=== PATIENT | female | born 1990 | race Caucasian/White ===

== ENCOUNTER 2025-01-09 05:32 | Inpatient (IN) ==
--- NOTE | 2024-12-15 09:06 | PAT Medication Instructions ---
Medication Instructions Date of Service December 15, 2024 Home Medications Medication Instructions Recorded lancets 30 gauge ([employer] Ximena #100 ea 11/10/24 Plus Lancet) blood sugar diagnostic ([facility]100 ea 11/11/24 Verio test strips) blood-glucose meter ([facility] #1 ea 11/11/24 Verio Flex Meter) lancets 30 gauge (Wummel[employer]Touch Ximena #25 ea 11/11/24 Plus Lancet) PNV no.[id number] [ Gummies] 1 tab PO DAILY ferrous sulfate 325 mg (65 mg iron) tablet (iron) 325 mg PO .EVERY OTHER DAY loratadine 10 mg tablet (Claritin) 10 mg PO DAILY PRN Allergy Symptoms DO NOT take the morning of surgery PNV no.[id number] [ Gummies] 1 tab PO DAILY ferrous sulfate 325 mg (65 mg iron) tablet (iron) 325 mg PO .EVERY OTHER DAY loratadine 10 mg tablet (Claritin) 10 mg PO DAILY PRN Allergy Symptoms Other Notes If you have any questions please call us at [phone] or [phone] or [phone] or [phone]
--- NOTE | 2024-12-20 10:00 | Anesthesiology Consultation ---
Date of Service December 20, 2024 Assessment & Plan (1) Encounter for pre-operative examination: - needle phobia: we had a detailed discussion regarding neuraxial anesthesia for and patient verbalized understanding we cannot sedate with this given current . Dr. Pandey advised that lidocaine cream can be applied to low back upon presentation. We also discussed likely spinal vs epidural which she had with previous given conversion from labor. She is interested in application of lidocaine cream to back upon presentation and order will be placed. We discussed that approach regarding IV/any day of surgery labs will be to OB's discretion on plan. Patient requests that she does not see set-up for neuraxial anesthesia and requests minimal discussion on it from provider. - patient states that she does not want her mother Diane to know that she is having tubal ligation done as well. She states she is comfortable with her mother visiting her in hospital-patient and her were made aware that it will be to their management regarding coordination of discussion with OB post- op/during hospitalization if mother is present in room. They verbalized understanding and denied additional questions or concerns, indicated satisfaction with discussion. Surgeon's office made aware of above. - Exam & Advise: patient seen at [facility] 12/20/24. Concern regarding upcoming delivery given patient severe needle phobia and her concerns regarding anesthesia. They request her be present for neuraxial anesthesia which is fine-L&D and surgeon's office made aware. Time in direct patient care 30 minutes. Chart Review Chart Review: Acceptable Risk for Surgery and Patient seen in Pre Admission Testing Teaching & Discussion Pre-Anesthesia Teaching/Discussion Notes: Instructed NPO after midnight before surgery, except medications with 15 cc of water. Medication instructions provided according to the [facility] guidelines. History Surgery Operation Date: 01/09/25 07:30 Proposed Procedures p Section (Delivery of Baby Through Abdominal Incision), - Karol Perez MD, FACOG s With Bilateral Tubal Ligation - Karol Perez MD, FACOG Height/Weight Height: 5 ft 4 in Weight: 97 kg Allergies Allergy/AdvReac Type Severity Reaction Status Date / Time Penicillins Allergy Intermediate Rash Verified 12/20/24 09:08 Medications Home Medications Medication Instructions Recorded Confirmed Last Taken PNV no.[id number] 1 tab PO DAILY 05/30/24 12/20/24 Unknown [ Gummies] lancets 30 gauge (One[employer] Delica #100 ea 11/10/24 12/20/24 Unknown Plus Lancet) blood sugar diagnostic ([employer]Touch #100 ea 11/11/24 12/20/24 Unknown Verio test strips) blood-glucose meter ([employer] #1 ea 11/11/24 12/20/24 Unknown Verio Flex Meter) lancets 30 gauge (OneTouch Delica #25 ea 11/11/24 12/20/24 Unknown Plus Lancet) ferrous sulfate 325 mg (65 mg 325 mg PO .EVERY OTHER DAY 12/15/24 12/20/24 Unk nown iron) tablet (iron) loratadine 10 mg tablet (Claritin) 10 mg PO DAILY PRN Allergy Symptoms 12/15/24 12/20/24 Unknown Past Medical History Medical History (Updated 12/20/24 @ 10:44 by Dia Zamora PA-C) GERD (gastroesophageal reflux disease) during Gestational diabetes diet controlled History of chicken pox History of COVID-19 (2019) no hosp; resolved History of postoperative nausea and vomiting occasional Hx of migraines Needle phobia Seasonal allergies Patient denies h/o stroke, seizures, heart attack, heart failure, HTN, blood clots/DVTs or blood transfusions. Exercise / Class Metabolic Activity II 4-5 Yardwork/Stairs/Walk up hill (shortness of breath with one flight of stairs at this point in -denies change/worsening-denies chest discomfort) Past Family History Family History Mother Diabetes Father Diabetes Grandmother (Maternal) Diabetes Aunt Breast cancer Denies family history of Ovarian cancer Colorectal cancer Past Surgical History Surgical History (Updated 12/20/24 @ 10:43 by Dia Zamora PA-C) History of tonsillectomy and adenoidectomy S/P breast biopsy, left benign-radiotracer in place S/P bunionectomy S/P section S/P myringotomy with insertion of tube with subsequent patch placement Past Anesthesia History No Hx of Anesthesia Complications and No Family Hx of Anesthesia Complications History of PONV No Hx of Motion Sickness and History of PONV Social History Smoking Status: Never smoker Do You Dip or Chew Tobacco: No Hx Alcohol Use: No Hx Substance Use: No substance use type: does not use Review of Systems Snoring, denies witnessed apneas. Patient denies chest pain, shortness of breath, dyspnea on exertion, fever, chills, cough, wheezing, or palpitations. Physical Exam Vital Signs Vitals BP 130/79 P 102 TEMP 36.7 SP02 96% on RA RESP 19 Physical Patient resting comfortably in chair in no acute distress, alert and oriented, responding appropriately throughout visit Full cervical extension range of motion without pain TMD 3 finger breadths Mallampati Score 3 Dentition: intact, denies chipped or loose teeth, caps/crowns, implants or bridges Lungs: normal respiratory effort. Good air movement, clear throughout to auscul tation, no adventitious breath sounds Cardiac: regular rate and rhythm, no murmurs noted Carotid arteries: negative bruit bilat Lumbar: normal in appearance, nontender to palpation of spinous processes and paraspinal muscles; no evident misalignment of spine
--- NOTE | 2025-01-06 18:01 | History & Physical Report ---
Date of Service January 06, 2025 Assessment & Plan (1) 39 weeks gestation of : (2) H/O section: (3) Encounter for sterilization: (4) Gestational diabetes mellitus (GDM) affecting , antepartum: Plan admit, iv, labs. plan lidocaine cream to back due to needle phobia, per anesthesia note. aware of risks of sterlization including regret. plans rpt c/s. discussed circumstances of last delivery and enc pt to cont to discuss concerns/wishes. consent reviewed and signed. History of Present Illness Chief Complaint: planned repeat c/s desires sterilization Primary Care Provider: NO PCP 34yo who will be 39wks on day of admission for planned repeat c/s and desires sterilization. No rom, vb. +FM. No ctx. PNC c/b 1. GDM diet controlled. 2. Anesth consult--see report due to anxiety regarding needles. PNL rh pos, ri, gbs neg OBH: c/s x 1 GYNH: nl paps no stds Allergies Allergy/AdvReac Type Severity Reaction Status Date / Time Penicillins Allergy Intermediate Rash Verified 01/06/25 08:51 Home Medications Medication Instructions Recorded Confirmed Type PNV no.[id number] 1 tab PO DAILY 05/30/24 01/06/25 History [ Gummies] lancets 30 gauge (OneTouch Delica #100 ea 11/10/24 01/06/25 Rx Plus Lancet) blood sugar diagnostic (OneTouch #100 ea 11/11/24 01/06/25 Rx Verio test strips) blood-glucose meter (OneTouch #1 ea 11/11/24 01/06/25 Rx Verio Flex Meter) lancets 30 gauge (OneTouch Delica #25 ea 11/11/24 01/06/25 Rx Plus Lancet) ferrous sulfate 325 mg (65 mg 325 mg PO .EVERY OTHER DAY 12/15/24 01/06/25 History iron) tablet (iron) loratadine 10 mg tablet (Claritin) 10 mg PO DAILY PRN Allergy Symptoms 12/15/24 01/06/25 History Patient History Medical History (Updated 01/06/25 @ 18:00 by Karol Perez MD, FACOG) GERD (gastroesophageal reflux disease) during Needle phobia History of COVID-19 (2019) no hosp; resolved History of postoperative nausea and vomiting occasional Gestational diabetes diet controlled Hx of migraines History of chicken pox Seasonal allergies Surgical History (Updated 01/06/25 @ 18:00 by Karol Perez MD, FACOG) History of tonsillectomy and adenoidectomy S/P breast biopsy, left benign-radiotracer in place S/P myringotomy with insertion of tube with subsequent patch placement S/P bunionectomy S/P section Family History Mother Diabetes Father Diabetes Grandmother (Maternal) Diabetes Aunt Breast cancer Denies family history of Ovarian cancer Colorectal cancer Social History Smoking Status: Never smoker Second Hand Exposure: Yes (hx); Do You Dip or Chew Tobacco: No; Hx Alcohol Use: No Hx Substance Use: No Preferred Language: Citizen Of [place] Communication Ability: Effective 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 Beliefs That Will Affect Care: None marital status: marital status details: Cipriano Forte (31) [phone] Current Living Situation: Spouse and Family current occupational status: employed current occupation: [employer]-works from home Feels Safe at Home: Yes Assistive Devices: Other Review of Systems as per Subjective / HPI Physical Exam Constitutional: WD/WN, vitals as above Respiratory: normal respiratory effort, lungs clear to auscultation Cardiovascular: Rate/Rhythm: regular rate and regular rhythm Gastrointestinal (Abdomen): soft gravid nt Musculoskeletal: no edema nontender calves Neurologic: grossly normal Psychiatric: A+Ox3, euthymic affect Coding Level of Care Code None Diagnoses 39 weeks gestation of Z3A.39 H/O section Z98.891 Encounter for sterilization Z30.2 Gestational diabetes mellitus (GDM) affecting , antepartum O24.419
[~2025-01-09 05:32] MED LIST: ALLERGY Noted to ORDERED Medication SCH
[2025-01-09] MEDS ORDERED: ceFAZolin 2,000 MG in SYRINGE 0 ML IV SCH (06:00)
[2025-01-09 06:10] LABS: Hematocrit (blood only) 32.9 % (37.0-47.0); Hemoglobin 10.8 g/dl (12.0-16.0); Mean Corpuscular Hemoglobin 26.9 pg (25.0-34.0); Mean Corpuscular Hgb Conc 32.8 g/dL (32.0-36.0); Mean Corpuscular Volume 81.8 fL (80.0-100.0); Mean Platelet Volume 9.9 fL (9.4-12.4); Platelet Count 270 K/uL (130-400); RDW Coefficient of Variation 16.7 % (11.5-14.5); RDW Standard Deviation 49.1 fL (36.4-46.3); Red Blood Count 4.02 M/uL (4.20-5.40); White Blood Count 8.87 K/ul (4.8-10.8)
[2025-01-09] MEDS: ACETAMINOPHEN 500 MG TAB PO SCH (06:21)
[2025-01-09] MEDS ORDERED: SODIUM CHLORIDE 0.9% 100 ML IV PRN (06:34)
[2025-01-09] MEDS ORDERED: SODIUM CHLORIDE 0.9% 50 ML IV PRN (06:34)
[2025-01-09] MEDS ORDERED: DEXAMETHASONE SOD INJ 4 MG/ML VIAL ONE (06:49)
[2025-01-09] MEDS ORDERED: fentaNYL citrate PF 100 MCG/2 ML VIAL ONE (06:49)
[2025-01-09] MEDS ORDERED: ONDANSETRON INJ 2 MG/ML 2 ML VIAL ONE (06:49)
[2025-01-09] MEDS ORDERED: PHENYLEPHRINE 100MCG/ML 5ML SYR ONE (06:49)
[2025-01-09] MEDS ORDERED: PHENYLEPHRINE HCL 25 MG/250 ML NSS IV ONE (06:49)
[2025-01-09] MEDS ORDERED: MoRPHine SULFATE PF 1 MG/ML 10 ML AMP/VIAL ONE (06:49)
[2025-01-09] MEDS ORDERED: OXYTOCIN 10 UNITS/ML VIAL ONE (06:52)
[2025-01-09] MEDS: LIDOCAINE 4% CREAM 15 GM TUBE EXT ONE (07:00)
[2025-01-09] MEDS: LACTATED RINGER'S 1,000 ML IV SCH (07:00)
[2025-01-09] MEDS: CITRIC ACID/SODIUM CITRATE 15 ML UDC PO SCH (07:08)
--- NOTE | 2025-01-09 07:25 | History & Physical Bridge Note ---
Date of Service January 09, 2025 History & Physical Bridge Note I have examined the patient, reviewed the History & Physical and in the interval since the performance of the History & Physical I have noted the following changes of clinical significance: no changes noted
[2025-01-09] MEDS: ceFAZolin 2000MG 2,000 MG/15 ML SYR IV ONE (07:30)
[2025-01-09] MEDS ORDERED: diphenhydrAMINE 50 MG/ML VIAL IV PRN (07:52)
[2025-01-09] MEDS ORDERED: oxyCODONE HCL IR 5 MG TAB (IMMEDIATE RELEASE) PO PRN (07:52)
[2025-01-09] MEDS ORDERED: ePHEDrine sulfate 50 MG/ML AMP IV PRN (07:52)
[2025-01-09] MEDS ORDERED: NALOXONE HCL 1 MG in SODIUM CHLORIDE 0.9% 1,000 ML IV PRN (07:52)
[2025-01-09] MEDS ORDERED: NALBUPHINE HCL INJ 10 MG/ML AMP IV PRN (07:52)
[2025-01-09] MEDS ORDERED: NALOXONE HCL 0.08 MG in SYRINGE 1.8 ML IV PRN (07:52)
[2025-01-09] MEDS ORDERED: PROMETHAZINE 6.25 MG/50.25 ML BAG IV PRN (07:52)
[2025-01-09] MEDS ORDERED: NALOXONE HCL 0.4 MG/1 ML VIAL/CARP IV PRN (07:52)
[2025-01-09] MEDS ORDERED: DC INTRASPINAL MORPHINE SCH (08:00)
[2025-01-09] MEDS ORDERED: NO NARCOTICS OR SEDATIVES SCH (08:00)
[2025-01-09] MEDS ORDERED: MIDAZOLAM HCL 1 MG/ML 2ML VIAL ONE (08:10)
--- NOTE | 2025-01-09 08:37 | Operative Report ---
Post Operative Report Pre & Post Diagnosis Operation Date: 01/09/25 07:30 Pre-Op Diagnosis: 1.39week iup 2.Hx section 3. Desire repeat section 4.Desire sterilization 5. Breech presentation Post-Op Diagnosis: Same as preoperative I identified the patient and participated in the time-out.: Yes Procedure Operation Date: 01/09/25 07:30 Actual Procedures p Repeat Low Transverse Section in LD with Bilateral Salpingectomies(Bilateral) - Karol Perez MD, FACOG Surgeon Karol Perez MD, FACOG Shipping And Receiving Assistant Amberly Quantitative Blood Loss (QBL) 333 Findings Consistent with Post-Op Diagnosis (viable female apgars 8,9 normal uterus tubes and ovaries bilaterally) Fluids 900 Specimens cord blood, bilateral fallopian tubes. Drains palm Anesthesia Type Spinal Complications none Disposition Accompanied Patient To Recovery: No Disposition: L&D Indications 34yo at 39 wks ega who desires repeat c/s for history of prior c/s and desires sterilization, presentation breech. Description of Procedure The patient was taken to the operating room and identified. After adequate anesthesia was obtained, she was placed in the supine position with a leftward tilt on the operating table and prepped and draped in the usual sterile fashion. A palm catheter had already been placed. The knife was used to create a Pfannensteil skin incision that was carried down to the underlying layer of fascia. The fascia was nicked in the midline and this opening was extended laterally using Adrian scissors. Joceline clamps were placed on the superior and inferior aspect of the fascial incision tenting it upward and the underlying rectus muscles were dissected off the overlying fascia both sharply and bluntly using Adrian scissors. The rectus muscles were bluntly in the midline. The peritoneal cavity was bluntly entered into. This opening was stretched. The bladder blade was placed. The vesicouterine peritoneum was elevated and opened up into and the bladder flap was created digitally and bladder blade was replaced. The knife was used to create a hysterotomy and this opening was stretched. The operators hand was placed through the hysterotomy and the bladder blade was removed. The foot was delivered followed by second foot and buttocks. The fetus was delivered to level of scapulae and arms were swept across anterior midline. The head was then flexed and delivered. The cord was clamped and cut after about 30sec and the 's mouth and nares were bulb suction. The was handed off to the awaiting pediatricians. Cord blood was obtained. The placenta was manually expressed. The uterus was exteriorized and cleared of all clots and debris. Dilute IV Pitocin was begun. The uterine tone was improving. The hysterotomy was closed in a running interlocking fashion using 0 Vicryl. Attention was turned to each fallopian tube which were resected using cautery/cutting ligasure device. The hysterotomy was hemostatic. The pelvis was suctioned. The uterus was returned to the abdomen. The gutters were cleared of all clots and debris. The hysterotomy was reinspected and noted to be hemostatic. The fascia was then closed in running fashion using 0 Vicryl. The subcutaneous fat was copiously irrigated and reapproximated using 2-0 chromic. The skin was closed in a subcuticular fashion using 4-0 monocryl. At this point the procedure was terminated. The patient was transferred to the recovery room in stable condition. All sponge, lap and needle counts are correct x2. I attest to the content of the Intraoperative Record and any orders documented therein. Any exceptions are noted below. OB Procedure Charges [id number] Add on Tubal for C/S
--- NOTE | 2025-01-09 08:54 | Anesthesiology Progress Note ---
Date of Service January 09, 2025 Anesthesia Post Procedure Vital Signs Vital Signs: Temp Pulse Resp BP Pulse Ox 01/09/25 08:48 76 100 01/09/25 08:46 74 93 01/09/25 08:43 77 99 01/09/25 08:39 74 105/58 L 94 01/09/25 08:38 74 94 01/09/25 07:18 37 C 20 01/09/25 07:16 79 119/70 01/09/25 06:09 88 115/61 01/09/25 06:05 36.9 C 20 Transfer of Care Handoff Completed per policy Notes Mental Status: alert / awake / arousable and participated in evaluation Patient Amnestic to Procedure: No Nausea / Vomiting: adequately controlled Pain: adequately controlled Airway Patency, RR, SpO2: stable & adequate BP & HR: stable & adequate Hydration State: stable & adequate Neuraxial Anesthesia: was administered and sensory block is resolving Anesthetic Complications: no major complications apparent and Pt Satisfied with anesthetic care
[2025-01-09] MEDS ORDERED: HYDROCORTISONE ACETATE 25 MG SUPP PR PRN (08:57)
[2025-01-09] MEDS ORDERED: SENNA 8.6 MG TAB PO PRN (08:57)
[2025-01-09] MEDS ORDERED: CALCIUM CARBONATE 500 MG CHEWABLE TAB PO PRN (08:57)
[2025-01-09] MEDS ORDERED: BENZOCAINE 20% SPRY 85 APPLN/85 GM CAN EXT PRN (08:57)
[2025-01-09] MEDS ORDERED: MAGNESIUM HYDROXIDE SUSP 30 ML UDC PO PRN (08:57)
[2025-01-09] MEDS ORDERED: OXYTOCIN 20 UNITS/LR 1,002 ML IV SCH (09:00)
[2025-01-09] MEDS: KETOROLAC 30 MG/ML VIAL IV SCH (09:19)
[2025-01-09] MEDS: DIPHTHER/TETAN/PERTUS Vaccine (Tdap, Adol/Adult) 0.5mL IM ONE (09:22)
[2025-01-09] MEDS: MoRPHine SULFATE PF 1 MG/ML 10 ML AMP/VIAL INT SPINAL ONE (09:22)
[2025-01-09] MEDS: SODIUM CHLORIDE 0.9% 1,000 ML IV SCH (09:23)
[2025-01-09] MEDS: LORATADINE 10 MG TAB PO PRN (09:33)
[2025-01-09] MEDS: SIMETHICONE 80 MG CHEW PO SCH (13:09)
[2025-01-09] MEDS: ONDANSETRON INJ 2 MG/ML 2 ML VIAL IV PRN (14:33)
[2025-01-09] MEDS: HYDROmorphone INJ 0.5 MG/0.5 ML SYR IV PRN (14:36)
[2025-01-09] MEDS: ACETAMINOPHEN 325 MG TAB PO SCH (15:24)
[2025-01-09] MEDS: DOCUSATE SODIUM 100 MG CAP PO SCH (21:14)
[2025-01-10] MEDS: LACTATED RINGER'S 1,000 ML IV SCH (00:31)
[2025-01-10] MEDS ORDERED: diphenhydrAMINE 50 MG/ML VIAL IV PRN (01:52)
[2025-01-10] MEDS ORDERED: PROMETHAZINE 12.5 MG/50.5 ML BAG IV PRN (01:52)
[2025-01-10] MEDS ORDERED: ONDANSETRON INJ 2 MG/ML 2 ML VIAL IV PRN (01:52)
[2025-01-10] MEDS ORDERED: diphenhydrAMINE Capsule 25 MG CAP PO PRN (01:52)
[2025-01-10] MEDS: HYDROmorphone INJ 0.5 MG/0.5 ML SYR IV PRN (02:22)
[2025-01-10 06:30] LABS: Basophils # (auto) 0.04 K/uL (0.00-0.20); Basophils % (auto) 0.4 %; Eosinophils # (auto) 0.22 K/uL (0.00-0.50); Eosinophils % (auto) 2.1 %; Hematocrit (blood only) 34.3 % (37.0-47.0); Hemoglobin 10.9 g/dl (12.0-16.0); Lymphocytes # (auto) 3.16 K/uL (1.20-3.40); Lymphocytes % (auto) 30.1 %; Mean Corpuscular Hemoglobin 26.4 pg (25.0-34.0); Mean Corpuscular Hgb Conc 31.8 g/dL (32.0-36.0); Mean Corpuscular Volume 83.1 fL (80.0-100.0); Mean Platelet Volume 10.2 fL (9.4-12.4); Monocytes # (auto) 1.36 K/uL (0.11-0.59); Neutrophils # (auto) 5.62 K/uL (1.40-6.50); Neutrophils % (auto) 53.4 %; Platelet Count 274 K/uL (130-400); RDW Coefficient of Variation 16.9 % (11.5-14.5); RDW Standard Deviation 50.3 fL (36.4-46.3); Red Blood Count 4.13 M/uL (4.20-5.40)
--- NOTE | 2025-01-10 07:24 | Obstetrical Progress Note ---
Date of Service January 10, 2025 Assessment & Plan (1) care and examination: Plan doing well stable. cont with routine care. hgb noted. breast, rhpos, ri. Day #:: 1 Subjective Ambulation: ambulating normally Voiding: no voiding problems Passing Gas:: Yes Diet Tolerance:: regular diet Lochia:: Small Feeding Type:: breast feeding used some oxycodone this am and moving well. pain well controlled. hgb stable. Constitutional: + as per Subjective / HPI Physical Exam Constitutional WD/WN, vitals as above Respiratory normal respiratory effort, lungs clear to auscultation Cardiovascular Rate/Rhythm: regular rate and regular rhythm Gastrointestinal (Abdomen) Inspection/Auscultation: abdomen normal to inspection and + abdominal surgical incision (c/d/i ) Percussion/Palpation: abdomen soft Fundus firm 2cm down Musculoskeletal nt calves no edema Neurologic grossly normal Psychiatric A+Ox3, euthymic affect Results & Data Vital Signs (Past 12 Hours) Vital Signs Temp Pulse Resp BP Pulse Ox O2 Del Method 01/10/25 02:35 97.7 F 86 18 114/71 96 Room Air 01/10/25 01:00 18 93 01/10/25 00:00 18 95 01/09/25 23:30 98.8 F 74 18 91/50 L 95 Room Air 01/09/25 23:00 18 95 01/09/25 21:30 20 98 01/09/25 20:30 20 98
[2025-01-10] MEDS: FERROUS SULFATE 325 MG TAB PO SCH (07:54)
[2025-01-10] MEDS: PRENATAL VITAMIN 1 TAB PO SCH (07:54)
[2025-01-10] MEDS ORDERED: KETOROLAC 30 MG/ML VIAL IV PRN (08:48)
[2025-01-10] MEDS: IBUPROFEN 600 MG TAB PO SCH (09:10)
[2025-01-10] MEDS: oxyCODONE HCL IR 5 MG TAB (IMMEDIATE RELEASE) PO PRN (17:21)
[2025-01-10] MEDS: bisacodyL 5 MG TABEC PO SCH (21:06)
--- NOTE | 2025-01-11 06:41 | Obstetrical Progress Note ---
Date of Service <James Domingo MD - Last Filed: 01/11/25 08:00> January 11, 2025 Assessment & Plan <James Domingo MD - Last Filed: 01/11/25 08:00> (1) care and examination: POD#2 s/p repeat at 39 weeks Stable. Rh+, gbs neg, ri, vitals & H/H wnl Continue routine care, OOB and ambulation, progress diet as tolerated Plan for DC later today <Mary Glover MD, FACOG - Last Filed: 01/11/25 08:04> (1) care and examination: Subjective <James Domingo MD - Last Filed: 01/11/25 08:00> Oralia is a 34 y/o female who is POD#2 following delivery at 39 weeks. Reports minimal pain with analgesics Is voiding w/o issues, has had BM Is tolerating meals and ambulating Having appropriate lochia Planning for both bottle and . Main concern is cold/nasal congestion Would like to go home today Constitutional: no fever, no chills or no sweats Ear, Nose, Mouth, Throat: + nasal congestion Respiratory: no dyspnea Cardiovascular: no chest pain, no palpitations or no calf pain Breast: no breast pain Gastrointestinal: no nausea or no vomiting Genitourinary (female): no dysuria Neurologic: no headache(s) no changes in vision, no headaches Physical Exam <James Domingo MD - Last Filed: 01/11/25 08:00> General: Alert, oriented. No acute distress. Cardiac: Regular rate and rhythm, no murmurs, rubs, or gallops. Respiratory: Clear to auscultation bilaterally. No increased work of breathing. Symmetrical chest rise. No respiratory distress. Abdomen: Soft, nontender, nondistended. Bowel sounds present. Uterus: Uterine fundus firm, nontender, palpable at the level of the umbilicus. Surgical scar clean and healing well. Lower extremities: No lower extremity edema or swelling. No deep calf pain. Results & Data <James Domingo MD - Last Filed: 01/11/25 08:00> Vital Signs (Past 12 Hours) Vital Signs Temp Pulse Resp BP Pulse Ox O2 Del Method 01/10/25 23:30 36.9 C 64 18 107/67 96 Room Air 01/10/25 20:16 36.8 C 75 18 105/63 97 Room Air Laboratory Results 01/10/25 06:07 Supervising Physician <Mary Glover MD, FACOG - Last Filed: 01/11/25 08:04> Co-Signing Physician Notes Resident Physician Supervision Note: I was present with Dr. Domingo during the history and exam. I discussed the case with the resident and agree with the findings and plan as documented in the note. Any exceptions or clarifications are listed here: [None] Documented By: Mary Glover MD, FACOG Resident Activity Tracking <James Domingo MD - Last Filed: 01/11/25 08:00> Resident Involvement: Resident Care Provided Care Provided: Adult Hospital Medicine
[2025-01-11 08:19] LABS: Hematocrit (blood only) 33.9 % (37.0-47.0); Hemoglobin 10.8 g/dl (12.0-16.0)
[2025-01-11] MEDS ORDERED: IBUPROFEN 600 MG TAB PO PRN (08:48)
[2025-01-11 08:51] VITALS: BP 119/75; PULSE 80; RESP 16; TEMP 98.2; O2SAT 100
[2025-01-11] MEDS ORDERED: ACETAMINOPHEN 325 MG TAB PO PRN (14:48)
== END 2025-01-11 10:45 | disposition home or self-care (01) | DRG 785 ==
LOC: 4S1 05:32 → EDSTATUS 07:30 → 4E2 11:23